=== PATIENT | female | born 1930 | race Two or more races ===

== ENCOUNTER 2018-04-29 16:40 | Emergency (ER) | payer SELFPAY ==
[~2018-04-29] VITALS: Ht 160 cm; Wt 60.0 kg
[2018-04-29] MEDS ORDERED: LABETALOL 5MG/ML SYR 20 MG/4 ML SYRINGE IV ONE (17:15)
[2018-04-29] MEDS ORDERED: TETANUS, DIPHTHERIA, PERTUSSIS VAC/PF 0.5ML (>7YR OLD) IM ONE (17:30)
[2018-04-29] MEDS ORDERED: MORPHINE SULFATE 10 MG/ML CPJ IM ONE (17:30)
[2018-04-29] MEDS ORDERED: BACITRACIN ZINC OINT UDPKT TOP ONE (17:30)
[2018-04-29] MEDS ORDERED: ONDANSETRON 4MG ODT PO ONE (17:30)
[2018-04-29 18:20] LABS: BASOPHILS % 0.6 % (0.0-2.0); EOSINOPHILS % 1.9 % (0.0-5.0); HEMATOCRIT. 39.9 % (36.0-48.0); HEMOGLOBIN. 13.4 g/dL (12.0-16.0); MEAN CORPUSCULAR HEMOGLOBIN 30.9 pg (28.0-32.0); NEUTROPHILS % 73.5 % (40.0-76.0); PLATELET 314 x1000/uL (130-400); RED BLOOD CELL COUNT 4.33 mill/uL (4.2-5.4)
[2018-04-29 18:21] LABS: CHLORIDE 100 mEq/L (98-107)
[2018-04-29 18:25] LABS: INR 1.1; PARTIAL THROMBOPLASTIN TIME 30.2 sec (23.4-31.0); PROTHROMBIN TIME 10.9 sec (9.1-11.1)
[2018-04-29 20:11] VITALS: BP 134/65
== END 2018-04-29 20:19 | disposition home or self-care (01) ==
LOC: ER 16:40
DX: S00.03XA Contusion of scalp, initial encounter (principal); M54.2 Cervicalgia; I16.0 Hypertensive urgency; I10 Essential (primary) hypertension; E11.9 Type 2 diabetes mellitus without complications; W01.0XXA Fall on same level from slipping, tripping and stumbling without subsequent striking against object, initial encounter; Y93.89 Activity, other specified; Y92.89 Other specified places as the place of occurrence of the external cause; Y99.8 Other external cause status
CPT/HCPCS: 36415; 70450; 71045; 72125; 80053; 83880; 84484; 85025; 85610; 85730; 86850; 86900; 86901; 90471; 90715; 93005; 96372; 99284; A4217; J2270; Q0162; Z7610